=== PATIENT | male | born 1960 | race Caucasian/White ===

== ENCOUNTER 2025-08-30 12:53 | Outpatient (AMB) | payer MEDICARE, SELFPAY ==
--- NOTE | 2025-08-30 12:57 | MHC.PC.OV ---
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 Transferring care from Tian Grossman ([facility]). Medical records have been requested and have not received. Plumbing Manager: Present Accompanied by: Spouse Allergies allopurinol Allergy (Severe, Verified 08/30/25 13:11) Anaphylaxis naproxen Allergy (Severe, Verified 08/30/25 13:11) Anaphylaxis colchicine Allergy (Intermediate, Verified 08/30/25 13:11) Swelling gabapentin Allergy (Intermediate, Verified 08/30/25 13:11) Nausea hydromorphone (From Dilaudid) Allergy (Intermediate, Verified 08/30/25 13:11) Nausea methadone Allergy (Intermediate, Verified 08/30/25 13:11) Nausea morphine Allergy (Intermediate, Verified 08/30/25 13:11) Nausea NSAIDS (Non-Steroidal Anti-Inflamma Allergy (Intermediate, Verified 08/30/25 13:11) Swelling Medication List - Last Reconciled 08/30/25 by Keyur Kaye MD famotidine 40 mg PO DAILY prednisone 10 mg PO DAILY Tobacco use date assessed: 08/30/25 Fall risk assessment: No Falls in past year Last assessed Fall Risk: 08/30/25 Dental Screening Dental Screen Date: 08/30/25 Did you have a dental visit in the last 12 months?: No Did you have a dental problem in the last 6 months where you did not have access to dental care?: No Was dental information given to patient?: No HPI HPI Comments History of Present Illness Details The patient is a 65 year old M with PMH of back pain s/p multiple reported surgeries presenting to establish primary care and for management of chronic health conditions. The patient has a history of chronic back pain following seven back surgeries, which included the removal of two discs, fusion of both sacroiliac joints, and placement of extensive hardware including rods and screws in the back and neck. Previous treatments included approximately 40 radiofrequency ablations and nearly 100 back injections. For pain management, the patient was previously on high-dose opioids, including up to 375 mg of oxycodone daily and a 150 mcg fentanyl patch every three days. The patient tapered down the medication and recently requested to discontinue fentanyl which The patient has been without any opioid pain medication for almost four months and reports feeling awful, with increased pain, especially with weather changes, and withdrawal symptoms such as leg twitching. The patient has a history of gout since age 26. The patient is unable to take NSAIDs, colchicine, or allopurinol due to an anaphylactic reaction to naproxen in the past, which caused facial swelling and syncope. Flare-ups have been managed with as-needed prednisone 10 mg. Past medical history is also significant for weight-related type 2 diabetes, which resolved after losing weight from 360 pounds to approximately 200 pounds. The patient takes famotidine for acid reflux. The patient used to be a tobacco grader. [facility] Surgical History (Updated 08/30/25 @ 13:16 by NED Fournier) History of vasectomy History of neck surgery History of knee surgery History of back surgery History of right shoulder surgery Social History (Updated 08/30/25 @ 13:16 by NED Fournier) Housing: House Alcohol intake: former Patient Tobacco Use Status: Current everyday Tobacco user Tobacco use type: Cigarette Cigarette Packs Per Day: 0.5 Cigarettes Per Day: 4 e-Cigarette/Vaping Use: Never Used Second Hand Smoke Exposure: Yes service: Yes Current occupational status: disabled Cognitive needs: Yes (Cane) Hearing needs: No Vision needs: Yes (Glasses) Questionnaire PHQ-9 Over the last 2 weeks, how often have you been bothered by any of the following problems? 1. Little interest or pleasure in doing things: several days 2. Feeling down, depressed, or hopeless: several days 3. Trouble falling or staying asleep, or sleeping too much: several days 4. Feeling tired or having little energy: several days 5. Poor appetite or overeating: several days 6. Feeling bad about yourself - or that you are a failure or have let yourself or your family down: not at all 7. Trouble concentrating on things, such as reading the newspaper or watching television: not at all 8. Moving or speaking so slowly that other people could have noticed. Or the opposite - being so fidgety or restless that you have been moving around a lot more than usual: not at all 9. Thoughts that you would be better off or of hurting yourself in some way: not at all Total score: 5 Depression Screening Interpretation: Positive Depression Screening Done: Yes Source: Developed by Drs. Chai Hahn, Mayra Benito, Bello Small and colleagues, with an educational kirill from [employer] Thrive Questionnaire Date Thrive assessed: 08/30/25 I am a: Patient What is your living situation today?: I have a steady place to live Within the past 12 months, did the food you bought not last and you didn't have the money to get more?: Sometimes True Within the past 12 months, did you worry whether your food would run out before you got money to buy more?: Sometimes True Do you have trouble paying for medicines?: No Do you have trouble getting transportation to medical appointments?: No Do you have trouble paying your heating and electricity bill?: No Do you have trouble taking care of your child, family member or friend?: No Do you have trouble with day-to-day activities such as bathing, preparing meals, shopping, managing finances, etc.?: No Are you currently unemployed and looking for a job?: No Are you interested in more education?: No Please select the resources that you would like help with: None Currently or been in a relationship where the following occur: No concerns reported THRIVE Score: 2 AUDIT C Alcohol Use Questionnaire (AUDIT-C) 1. How often do you have a drink containing alcohol?: Monthly or less 2. How many drinks containing alcohol do you have on a typical day when you are drinking?: 1 or 2 3. How often do you have six or more drinks on one occasion?: Never Total Score: 1 CHILANGO-7 AMB Questionnaire CHILANGO-7 Date CHILANGO - 7 assessed: 08/30/25 Feeling nervous, anxious, or on edge: 1 = Several days Not being able to stop or control worryin = Several days Worrying too much about different things: 1 = Several days Trouble relaxin = Several days Being so restless that it is hard to sit still: 0 = Not at all Becoming easily annoyed or irritable: 1 = Several days Feeling afraid as if something awful might happen: 0 = Not at all Total CHILANGO-7 score (0-4 normal; 5-9 mild; 10-14 moderate; 15-21 severe): 5 Source: Developed by Drs. Chai Hahn, Mayra Benito, Bello Small and colleagues, with an educational kirill from [employer] Review of Systems Const Details: As per HPI. Physical exam (Primary Care) Vital Signs: Last Vital Signs Temp 97.1 F 08/30/25 12:59 Pulse 66 08/30/25 12:59 BP 130/82 08/30/25 12:59 Pulse Ox 99 08/30/25 12:59 Oxygen Delivery Method Room Air 08/30/25 12:59 BMI result Body Mass Index 29.8 Tobacco/Smoking Status: Tobacco use Status Tobacco use date assessed 08/30/25 08/30/25 13:18 Patient Tobacco Use Status Current everyday Tobacco 08/30/25 13:18 Tobacco use type Cigarette 08/30/25 13:18 e-Cigarette/Vaping Use Never Used 08/30/25 13:18 PHQ-9: PHQ-9 Score PHQ-9: Total score 5 08/30/25 13:18 Depression Screening Interpretation: Positive Thrive Assessment: Date of Thrive Assessment Date Thrive assessed 08/30/25 08/30/25 13:18 Currently or been in a relationship where the following occur: No concerns reported Const Other: Pertinent findings are in BOLD GENERAL APPEARANCE NAD, activity normal for age, well developed/ well nourished, no cyanosis, pallor, or diaphoresis. EYES lids/conjunctiva normal. EARS/NOSE/THROAT Mucous membranes moist, nares normal, lips/teeth normal uvula midline without oral pharyngeal erythema, exudate or swelling TMs normal bilaterally. No lymphangitis/lymphedema. HEAD/NECK normocephalic atraumatic, no facial trauma, neck is supple. RESPIRATORY respiratory effort normal, speaks in full sentences, no tripod position, no accessory muscle use. Lungs clear to auscultation without rhonchi, wheezes, rales CARDIAC Regular rate and rhythm, no edema. ABDOMINAL Soft, ND/NT. No evidence of fluid wave. No pulsatile masses on exam, rebound tenderness, Finnegan sign or pain over Mcburney's point. MUSCLES/EXTREMITIES No abnormal range of motion, no swelling. Back midline vertical scar from back surgery. SKIN Warm, pink and dry. No rashes, dermatoses, petechiae or lesions. NEUROLOGICAL Speech is clear and appropriate. Normal level of consciousness. Gait and coordination are normal. 5/5 strength in all extremities. PSYCH Normal mood and affect. Judgement/competence is appropriate Coding Level of Care Code New Pt Level 4 (75444) Diagnoses Healthcare maintenance Z00.00 Back pain M54.9 Gout M10.9 Time Spent (min) 45 Assessment & Plan Assessment & Plan (1) Healthcare maintenance: Code(s): Z00.00 - Encounter for general adult medical examination without abnormal findings Category: Medical Plan: In 4 months for physical exam. Ordered general labs today. (2) Back pain: Comment: s/p multiple back surgeries. Code(s): M54.9 - Dorsalgia, unspecified Category: Medical Plan: - The patient's chronic back pain is severe, impacting function and sleep, particularly after stopping all opioid medication for nearly four months. - The patient wishes to manage pain with a low-dose opioid and avoid fentanyl. - Prescribe oxycodone 5 mg to be taken every 8 hours as needed for pain. Pain contract signed in clinic today. - A pain contract will be implemented, which includes random urine drug screens and pill counts. - Will request medical records from the patient's previous providers, including surgical reports and imaging, to be sent to the office. (3) Gout: Code(s): M10.9 - Gout, unspecified Category: Medical Plan: - The patient has a long-standing history of gout and is unable to take standard treatments like NSAIDs, allopurinol, or colchicine. - The patient reports managing flare-ups with as-needed prednisone 10 mg. - Discussed dietary modifications, such as avoiding red meat and dark sodas, to help manage gout. Patient currently does not consume alcohol. Plan I had a detailed discussion with the patient regarding the management of chronic back pain. I acknowledged the patient's desire to avoid high-dose opioids while still requiring medication for severe pain. We agreed to initiate low-dose oxycodone 5 mg as needed. I explained the necessity of a pain contract, which includes random urine drug screens and pill counts, to ensure safety and proper use of the medication; the patient verbalized understanding and agreement. We also discussed the plan for health maintenance, including ordering comprehensive lab work and administering an influenza vaccine, to which the patient consented. I instructed the patient on how to request previous medical records and scheduled a follow-up visit in four months for a complete physical exam. Orders: Orders Comprehensive Met. Panel Today Z00.00 - Encounter for general adult medical examination without abnormal findings Hepatitis C Antibody Reflex Today Z00.00 - Encounter for general adult medical examination without abnormal findings Lipid Panel Today Z00.00 - Encounter for general adult medical examination without abnormal findings TSH reflex Free T4 Today Z00.00 - Encounter for general adult medical examination without abnormal findings Complete Blood Count no Diff Today Z00.00 - Encounter for general adult medical examination without abnormal findings Hemoglobin A1c Today Z00.00 - Encounter for general adult medical examination without abnormal findings HIV Ab/Ag Today Z00.00 - Encounter for general adult medical examination without abnormal findings Prostate Specific Antigen Today Z00.00 - Encounter for general adult medical examination without abnormal findings Referrals Addiction Medicine Referral M54.9 - Dorsalgia, unspecified Rheumatology Referral M10.9 - Gout, unspecified Medications: New oxycodone Partial Fill upon patient request. 5 mg PO Q8H PRN 30 tabs 0RF pain famotidine 40 mg PO DAILY 60 tabs 3RF
[2025-08-30 12:59] VITALS: BP 130/82; PULSE 66; TEMP 36.2; O2SAT 99; BMI 29.8
--- OUTSIDE RECORDS SUMMARY | 2025-08-30 16:30 | XMS_ITS | Encounter Summary ---
Author Organization [facility] Address [address] [place] [address] Care Team Providers Care Still Worker Helper Name Role Phone Tian Grossman MD Primary Care Provider [phone] Scout Aponte MD Unavailable Trinidad Roa MD Unavailable [phone] Encounter Details Date Type Department Care Team (Late st Contact Info) Description 05/25/2022 Scanned Document [facility] Neurosurgery [address] [place] [phone] Neurosurgery, Scan Social History Tobacco Use Types Packs/Day Years Used Date Smoking Tobacco: Former Cigarettes 1 15 0 10/2006 - 10/2021 Smokeless Tobacco: Never Alcohol Use Standard Drinks/Week Comments Not Currently 0 (1 standard drink = 0.6 oz pur e alcohol) AUDIT-C Answer Date Recorded Q1: How often do you have a drink containing alcohol? Never 04/20/2022 Q2: How many drinks containi ng alcohol do you have on a typical day when you are drinking? Patient does not drink Q3: How often do you have si x or more drinks on one occasion? Never 04/20/2022 Sex and Gender Information Value Date Recorded Sex Assigned at Not on file Legal Sex Male 3:08 PM EST Gender Identity Not on file Sexual Orientation Not on file COVID-19 Exposure Response Date Recorded In the last 10 days, have yo u been in contact with someone who was confirmed or suspected to have Coronavirus/COVID-19? No / Unsure 05/09/2022 9:40 AM EDT documented as of this encounter Plan of Treatment Not on file documented as of this encounter Visit Diagnoses Not on filedocumented in this encounter Care Teams Still Worker Helper Relationship Specialty Start Date End Date Tian Grossman MD [address] [place] [address] [place] [address] PCP - General Internal Medicine 10/23/21 Scout Aponte MD [address] [place] [address] [place] [address] Referring Provider 10/23/21 Trinidad Roa MD [address] [place] [address] Surgery, Neurosurgery 02/19/22 documented as of this encounter
--- OUTSIDE RECORDS SUMMARY | 2025-08-30 16:30 | XMS_ITS | Encounter Summary ---
Author Organization [facility] Address [address] [place] [address] Care Team Providers Care Claim Specialist Name Role Phone Tian Grossman MD Primary Care Provider [phone] Scout Aponte MD Unavailable Trinidad Roa MD Unavailable [phone] Encounter Details Date Type Department Care Team (Late st Contact Info) Description 05/28/2022 Scanned Document [facility] NEUROSURGERY SCAN Neurosurgery, Scan Social History Tobacco Use Types [...] on filedocumented in this encounter Care Teams Claim Specialist Relationship Specialty Start Date End Date Tian Grossman MD [address] [place] [address] [place] [address] PCP - General Internal Medicine 10/23/21 Scout Aponte MD [address] [place] [address] [place] [address] Referring Provider 10/23/21 Trinidad Roa MD [address] [place] [address] Surgery, Neurosurgery 02/19/22 documented as of this encounter
--- OUTSIDE RECORDS SUMMARY | 2025-08-30 16:30 | XMS_ITS | Encounter Summary ---
Author Organization [facility] Address [address] [place] [address] Care Team Providers Care Rate Supervisor Name Role Phone Tian Grossman MD Primary Care Provider [phone] Scout Aponte MD Unavailable Trinidad Roa MD Unavailable [phone] Encounter Details Date Type Department Care Team (Late st Contact Info) Description 05/30/2022 Scanned Document [facility] Neurosurgery [address] [place] [phone] Neurosurgery, Scan Social History Tobacco Use Types [...] on filedocumented in this encounter Care Teams Rate Supervisor Relationship Specialty Start Date End Date Tian Grossman MD [address] [place] [address] [place] [address] PCP - General Internal Medicine 10/23/21 Scout Aponte MD [address] [place] [address] [place] [address] Referring Provider 10/23/21 Trinidad Roa MD [address] [place] [address] Surgery, Neurosurgery 02/19/22 documented as of this encounter
--- OUTSIDE RECORDS SUMMARY | 2025-08-30 16:30 | XMS_ITS | Encounter Summary ---
Author Organization [facility] Address [address] [place] [address] Care Team Providers Care Latrine Cleaner Name Role Phone Tian Grossman MD Primary Care Provider [phone] Scout Aponte MD Unavailable Trinidad Roa MD Unavailable Encounter Details Date Type Department Care Team (Late st Contact Info) Description 07/25/2022 Scanned Document [facility] NEUROSURGERY SCAN Neurosurgery, Scan Social History [...] suspected to have Coronavirus/COVID-19? No / Unsure 07/17/2022 10:41 AM EDT documented as of this encounter Plan of Treatment Not on file documented as of this encounter Visit Diagnoses Not on filedocumented in this encounter Care Teams Latrine Cleaner Relationship Specialty Start Date End Date Tian Grossman MD [address] [place] [address] [place] [address] PCP - General Internal Medicine 10/23/21 Scout Aponte MD [address] [place] [address] [place] [address] Referring Provider 10/23/21 Trinidad Roa MD [address] [place] [address] Surgery, Neurosurgery 02/19/22 documented as of this encounter
--- OUTSIDE RECORDS SUMMARY | 2025-08-30 16:30 | XMS_ITS | Encounter Summary ---
Author Organization [facility] Address [address] [place] [address] Care Team Providers Care Loadmaster Name Role Phone Tian Grossman MD Primary Care Provider [phone] Scout Aponte MD Unavailable Trinidad Roa MD Unavailable [phone] Encounter Details Date Type Department Care Team (Late st Contact Info) Description 06/22/2022 Scanned Document [facility] Neurosurgery [address] [id number] Maria Alejandra Linares PA Valid Address Needed Social History Tobacco Use Types Packs/Day Years [...] suspected to have Coronavirus/COVID-19? No / Unsure 06/22/2022 3:31 PM EDT documented as of this encounter Plan of Treatment Not on file documented as of this encounter Visit Diagnoses Not on filedocumented in this encounter Care Teams Loadmaster Relationship Specialty Start Date End Date Tian Grossman MD [facility] [place] [address] PCP - General Internal Medicine 10/23/21 Scout Aponte MD [address] [place] [address] [place] [address] Referring Provider 10/23/21 Trinidad Roa MD [address] [place] [address] Surgery, Neurosurgery 02/19/22 documented as of this encounter
--- OUTSIDE RECORDS SUMMARY | 2025-08-30 16:30 | XMS_ITS | Encounter Summary ---
Author Organization [facility] Address [address] [place] [address] Care Team Providers Care Buttonholer Name Role Phone Tian Grossman MD Primary Care Provider [phone] Scout Aponte MD Unavailable Trinidad Roa MD Unavailable [phone] Encounter Details Date Type Department Care Team (Late st Contact Info) Description 05/28/2022 Scanned Document [facility] NEUROSURGERY SCAN Neurosurgery, Scan Social History [...] on filedocumented in this encounter Care Teams Buttonholer Relationship Specialty Start Date End Date Tian Grossman MD [address] [place] [address] [place] [address] PCP - General Internal Medicine 10/23/21 Scout Aponte MD [address] [place] [address] [place] [address] Referring Provider 10/23/21 Trinidad Roa MD [address] [place] [address] Surgery, Neurosurgery 02/19/22 documented as of this encounter
--- OUTSIDE RECORDS SUMMARY | 2025-08-30 16:30 | XMS_ITS | Clinical Summary ---
Author Organization [facility] Address [address] [place] [address] Care Team Providers Care Stucco Laborer Name Role Phone Unavailable Primary Care Provider Unavailabl e Social History Tobacco Use Types Packs/Day Years Used Date Smoking Tobacco: Never Assessed Sex and Gender Information Value Date Recorded Sex Assigned at Not on file Legal Sex Male 12:05 PM EST Gender Identity Not on file Sexual Orientation Not on file Plan of Treatment Health Maintenance Due Date Last Done Comments DTaP,Tdap,and Td Vaccines (1 - Tdap) 1978 Pneumococcal Vaccine: 50+ Ye ars (1 of 1 - PCV) 2009 Zoster Vaccines (1 of 2) 2009 Depression Screening 09/30/2024 COVID-19 Vaccine (1 - 2024-2 6 season) 2025 Influenza Vaccine (#1) 2025 RSV Immunization Adult Patie nts (1 - 1-dose 75+ series) 2034 HIB Vaccines Aged Out No longer eligi ble based on patient's age to complete this topic HPV Vaccines Aged Out No longer eligi ble based on patient's age to complete this topic Hepatitis A Vaccines Aged Out No long er eligible based on patient's age to complete this topic Hepatitis B Vaccines Aged Out No long er eligible based on patient's age to complete this topic IPV Vaccines Aged Out No longer eligi ble based on patient's age to complete this topic MMR Vaccines Aged Out No longer eligi ble based on patient's age to complete this topic Meningococcal ACWY Vaccine Aged Out N o longer eligible based on patient's age to complete this topic Meningococcal B Vaccine Aged Out No l onger eligible based on patient's age to complete this topic RSV Immunization Patients Un eren 20 months Aged Out No longer eligible b ased on patient's age to complete this topic Varicella Vaccines Aged Out No longer eligible based on patient's age to complete this topic
--- OUTSIDE RECORDS SUMMARY | 2025-08-30 16:30 | XMS_ITS | Encounter Summary ---
Author Organization [facility] Address [address] [place] [address] Care Team Providers Care Traffic Control Operator Name Role Phone Tian Grossman MD Primary Care Provider [phone] Scout Aopnte MD Unavailable Trinidad Roa MD Unavailable [phone] Encounter Details Date Type Department Care Team (Late st Contact Info) Description 08/14/2022 Scanned Document [facility] Neurosurgery [address] [place] [phone] Neurosurgery, Scan Social History Tobacco Use Types [...] on filedocumented in this encounter Care Teams Traffic Control Operator Relationship Specialty Start Date End Date Tian Grossman MD [address] [place] [address] [place] [address] PCP - General Internal Medicine 10/23/21 Scout Aponte MD [address] [place] [address] [place] [address] Referring Provider 10/23/21 Trinidad Roa MD [address] [place] [address] Surgery, Neurosurgery 02/19/22 documented as of this encounter
--- OUTSIDE RECORDS SUMMARY | 2025-08-30 16:30 | XMS_ITS | Encounter Summary ---
Author Organization [facility] Address [address] [place] [address] Care Team Providers Care Independent Consultant Name Role Phone Tian Grossman MD Primary Care Provider [phone] Scout Aponte MD Unavailable Trinidad Roa MD Unavailable [phone] Encounter Details Date Type Department Care Team (Late st Contact Info) Description 06/20/2022 Scanned Document [facility] NEUROSURGERY SCAN Neurosurgery, Scan Social History [...] on filedocumented in this encounter Care Teams Independent Consultant Relationship Specialty Start Date End Date Tian Grossman MD [address] [place] [address] [place] [address] PCP - General Internal Medicine 10/23/21 Scout Aponte MD [address] [place] [address] [place] [address] Referring Provider 10/23/21 Trinidad Roa MD [address] [place] [address] Surgery, Neurosurgery 02/19/22 documented as of this encounter
--- OUTSIDE RECORDS SUMMARY | 2025-08-30 16:30 | XMS_ITS | Encounter Summary ---
Author Organization [facility] Address [address] [place] [address] Care Team Providers Care Nursing Executive Name Role Phone Tian Grossman MD Primary Care Provider [phone] Scout Aponte MD Unavailable Trinidad Roa MD Unavailable [phone] Encounter Details Date Type Department Care Team (Late st Contact Info) Description 10/16/[address] [facility] Neurosurgery [address] [place] [phone] Neurosurgery, Scan Social History Tobacco Use Types [...] on file Sexual Orientation Not on file documented as of this encounter Plan of Treatment Not on file documented as of this encounter Visit Diagnoses Not on filedocumented in this encounter Care Teams Nursing Executive Relationship Specialty Start Date End Date [facility] [place] [address] PCP - General Internal Medicine 10/23/21 Scout Aponte MD [address] [place] [address] [place] [address] Referring Provider 10/23/21 Trinidad Roa MD [address] [place] [address] Surgery, Neurosurgery 02/19/22 documented as of this encounter
--- OUTSIDE RECORDS SUMMARY | 2025-08-30 16:30 | XMS_ITS ---
Author Name [facility] Organization Unknown History of Medication Use Medication Directions Dispensed Refills Start Date End Date Stat oxyCODONE (ROXICODONE) 5 MG immediate release tablet Take 2 tablets (10 mg total) by mouth 4 times daily (every 6 hours) as needed for moderate pain or severe pain. Max Daily Amount: 40 mg 11/09/2022 04/12/2023 active methocarbamol (ROBAXIN) 750 MG tablet TAKE 1 TABLET BY MOUTH FOUR TIMES A DAY 08/15/2022 01/30/2023 active diazepam (VALIUM) 5 MG tablet Take 1 tablet (5 mg total) by mouth 2 (two) times a day. Take one 4 hours before the MRI and if still anxious take one 1 hour before MRI. 06/22/2022 08/30/2022 active oxyCODONE-acetaminop hen (PERCOCET) 10-325 mg per tablet Take 1 tablet by mouth every 4 (four) hours as needed for severe pain. Max Daily Amount: 6 tablets 06/22/2022 07/20/2022 aborted cephalexin (KEFLEX) 500 MG capsule Take 2 capsules (1,000 mg total) by mouth 2 (two) times a day. 06/22/2022 07/07/2022 aborted sulfamethoxazole-tri methoprim (BACTRIM DS,SEPTRA DS) 800-160 MG per tablet Take 1 tablet by mouth 2 (two) times a day. 06/22/2022 07/07/2022 aborted oxyCODONE (ROXICODONE) 10 mg immediate release tablet Take 1 tablet (10 mg total) by mouth every 4 (four) hours as needed for severe pain. Max Daily Amount: 60 mg 06/18/2022 11/12/2022 active methocarbamol (ROBAXIN) 750 MG tablet Take 1 tablet (750 mg total) by mouth 4 (four) times a day. 06/18/2022 08/15/2022 active ascorbic acid (VITAMIN C) 1000 MG tablet Take 1 tablet (1,000 mg total) by mouth daily. Do not start before May 15, 2022. 05/15/2022 active gabapentin (NEURONTIN) 100 MG capsule Take 1 capsule (100 mg total) by mouth 2 (two) times a day. 05/14/2022 active gabapentin (NEURONTIN) 300 MG capsule Take 1 capsule (300 mg total) by mouth nightly. 05/14/2022 active predniSONE (DELTASONE) 10 MG tablet Take 10 mg by mouth daily as needed. gout 03/14/2022 active acetaminophen (TYLENOL) 325 MG tablet Take 3 tablets (975 mg total) by mouth every 8 (eight) hours around the clock. 02/24/2022 active senna-docusate (SENNA-S) 8.6-50 MG Take 2 tablets by mouth nightly. 02/24/2022 active fentaNYL (DURAGESIC) 100 mcg/hr patch APPLY 1 PATCH TOPICALLY TO THE SKIN EVERY 72 HOURS 01/06/2022 active nystatin 540322 UNIT/GM powder Apply topically 2 (two) times a day. 12/08/2021 active Allergies Allergen Reaction Severity Comment Documented Date Source Statu s BACLOFEN DELERIUM/CONFUSION /PSYCHOSIS Salivation, dizziness and imbalance, with altered mental status 06/18/2022 [facility] active TOPIRAMATE SWELLING 01/23/2022 [facility] active ALLOPURINOL ANAPHYLAXIS [facility] COLCHICINE ANAPHYLAXIS [facility] METHADONE SHORTNESS OF BREATH [facility] NAPROXEN ANAPHYLAXIS [facility] NSAIDS [facility] Problems Problem Status Onset Date Problem Type Date of Resoluti on Source Diabetic polyneuropathy associated with type 2 diabetes mellitus active 2023-04-12 [facility]Act [facility] Lumbar adjacent segment disease with spondylolisthesis active 2022-02-16 [facility]Act [facility] Postlaminectomy syndrome active 2022-09-23 [facility]Act [facility] Chronic, continuous use of opioids active 2023-01-14 ProblemAct [facility] Gout active ProblemAct [facility] Quadriparesis active 2022-02-23 ProblemAct [facility] T S/P lumbar spinal fusion active 2022-08-19 ProblemAct [facility] Cervical myelopathy active 2022-02-16 ProblemAct [facility] Postoperative visit active 2022-08-19 ProblemAct [facility] Chronic bilateral low back pain with left-sided sciatica active 2022-08-19 ProblemAct [facility] Type 2 diabetes mellitus active Problem[facility] Spinal stenosis, lumbar region, with neurogenic claudication active 2022-02-16 ProblemAct [facility] Lumbar radiculopathy active 2022-05-09 ProblemAct [facility] Lumbar foraminal stenosis active 2022-02-16 ProblemAct [facility] Encounters Encounter Type Encounter Reason Primary Diagnosis Location Date Ambulatory Type 2 diabetes mellitus with diabetic polyneuropathy [facility] 04/12/2023 Ambulatory Postlaminectomy syndrome, not elsewhere classified [facility] 01/04/2023 Ambulatory Other interverte bral disc degeneration, lumbosacral region [facility] 12/12/2022 Ambulatory Pain in right leg [facility] 11/23/2022 Ambulatory Arthrodesis status [facility] 09/07/2022 Ambulatory Arthrodesis status [facility] 08/03/2022 Ambulatory Arthrodesis status [facility] 07/17/2022 Ambulatory Arthrodesis status [facility] 07/06/2022 Ambulatory Disruption of wo und, unspecified, initial encounter [facility] 06/22/2022 Ambulatory Irritant contact dermatitis due friction or contact with other specified body fluids [facility] 06/18/2022 Ambulatory Arthrodesis status [facility] 06/08/2022 Ambulatory Arthrodesis status [facility] 05/28/2022 Ambulatory Arthrodesis status [facility] 05/18/2022 Inpatient Arthrodesis status [facility] 05/09/2022 Ambulatory Encounter for preprocedural laboratory examination [facility] 05/07/2022 Ambulatory Encounter for ot her preprocedural examination [facility] 04/23/2022 Ambulatory Other interverte bral disc degeneration, lumbar region [facility] 04/16/2022 Ambulatory Arthrodesis status [facility] 03/09/2022 Ambulatory Disease of spina l cord, unspecified [facility] 02/23/2022 Ambulatory Encounter for preprocedural laboratory examination [facility] 02/21/2022 Ambulatory Encounter for ot her preprocedural examination [facility] 02/20/2022 Ambulatory Back Pain [place] [facility] [place] 01/23/2022 Ambulatory [facility] 11/21/2021 Care Team Organization Name Specialty Phone Email Start Date End Da te [place] [facility] Beth Grossman Primary Care 08/03/[address] [place] [facility] BETH GROSSMAN Primary Care 01/23/2022 07/17/2022
--- OUTSIDE RECORDS SUMMARY | 2025-08-30 16:30 | XMS_ITS | Encounter Summary ---
Author Organization [facility] Address [address] [place] [address] Care Team Providers Care Medication Administration Professional Name Role Phone Tian Grossman MD Primary Care Provider [phone] Scout Aponte MD Unavailable Trinidad Roa MD Unavailable [phone] Encounter Details Date Type Department Care Team (Late st Contact Info) Description 06/20/2022 Scanned Document [facility] Neurosurgery [address] [place] [phone] Neurosurgery, Scan Social History Tobacco Use Types [...] on filedocumented in this encounter Care Teams Medication Administration Professional Relationship Specialty Start Date End Date Tian Grossman MD [address] [place] [address] [place] [address] PCP - General Internal Medicine 10/23/21 Scout Aponte MD [address] [place] [address] [place] [address] Referring Provider 10/23/21 Trinidad Roa MD [address] [place] [address] Surgery, Neurosurgery 02/19/22 documented as of this encounter
--- OUTSIDE RECORDS SUMMARY | 2025-08-30 16:30 | XMS_ITS | Encounter Summary ---
Author Organization [facility] Address [address] [place] [address] Care Team Providers Care Delphi Programmer Name Role Phone Tian Grossman MD Primary Care Provider [phone] Scout Aponte MD Unavailable Trinidad Roa MD Unavailable [phone] Encounter Details Date Type Department Care Team (Late st Contact Info) Description 12/26/2022 Scanned Document [facility] Neurosurgery [address] [place] [phone] Neurosurgery, Scan Social History Tobacco Use Types [...] on filedocumented in this encounter Care Teams Delphi Programmer Relationship Specialty Start Date End Date Tian Grossman MD [address] [place] [address] PCP - General Internal Medicine 10/23/21 Scout Aponte MD [address] [place] [address] [place] [address] Referring Provider 10/23/21 Trinidad Roa MD [address] [place] [address] Surgery, Neurosurgery 02/19/22 documented as of this encounter
--- OUTSIDE RECORDS SUMMARY | 2025-08-30 16:30 | XMS_ITS | Encounter Summary ---
Author Organization [facility] Address [address] [place] [address] Care Team Providers Care Alarm Installation Technician Name Role Phone Tian Grossman MD Primary Care Provider [phone] Scout Aponte MD Unavailable Trinidad Roa MD Unavailable [phone] Encounter Details Date Type Department Care Team (Late st Contact Info) Description 08/16/2022 Scanned Document [facility] NEUROSURGERY SCAN Neurosurgery, Scan Social History Tobacco [...] on filedocumented in this encounter Care Teams Alarm Installation Technician Relationship Specialty Start Date End Date Tian Grossman MD [address] [place] [address] [place] [address] PCP - General Internal Medicine 10/23/21 Scout Aponte MD [address] [place] [address] [place] [address] Referring Provider 10/23/21 Trinidad Roa MD [address] [place] [address] Surgery, Neurosurgery 02/19/22 documented as of this encounter
--- OUTSIDE RECORDS SUMMARY | 2025-08-30 16:30 | XMS_ITS | Encounter Summary ---
Author Organization [facility] Address [address] [place] [address] Care Team Providers Care Manufacturing Intern Name Role Phone Tian Grossman MD Primary Care Provider [phone] Scout Aponte MD Unavailable Trinidad Roa MD Unavailable [phone] Encounter Details Date Type Department Care Team (Late st Contact Info) Description 07/30/2022 Scanned Document [facility] Neurosurgery [address] [place] [phone] Neurosurgery, Scan Social History Tobacco Use Types [...] on filedocumented in this encounter Care Teams Manufacturing Intern Relationship Specialty Start Date End Date Tian Grossman MD [address] [place] [address] [place] [address] PCP - General Internal Medicine 10/23/21 Scout Aponte MD [address] [place] [address] [place] [address] Referring Provider 10/23/21 Trinidad Roa MD [address] [place] [address] Surgery, Neurosurgery 02/19/22 documented as of this encounter
--- OUTSIDE RECORDS SUMMARY | 2025-08-30 16:30 | XMS_ITS | Encounter Summary ---
Author Organization [facility] Address [address] [place] [address] Care Team Providers Care Consumer Insights Specialist Name Role Phone Tian Grossman MD Primary Care Provider [phone] Scout Aponte MD Unavailable Trinidad Roa MD Unavailable Encounter Details Date Type Department Care Team (Late st Contact Info) Description 05/04/2022 Prep for Surgery [facility] [place] [address] [place] [address] [address] [place] [phone] Ellyn Joy APRN [address] [place] [address] [address], [place] [phone] Social History Tobacco Use Types Packs/Day Years [...] was confirmed or suspected to have Coronavirus/COVID-19? Unable to assess 05/07/2022 9:14 AM EDT documented as of this encounter Plan of Treatment Not on file documented as of this encounter Visit Diagnoses Not on filedocumented in this encounter Care Teams Consumer Insights Specialist Relationship Specialty Start Date End Date Tian Grossman MD [address] [place] [address] [place] [address] PCP - General Internal Medicine 10/23/21 Scout Aponte MD [address] [place] [address] [place] [address] Referring Provider 10/23/21 Trinidad Roa MD [address] [place] [address] Surgery, Neurosurgery 02/19/22 documented as of this encounter
--- OUTSIDE RECORDS SUMMARY | 2025-08-30 16:30 | XMS_ITS | Encounter Summary ---
Author Organization [facility] Address [address] [place] [address] Care Team Providers Care Juice Mixer Name Role Phone Tian Grossman MD Primary Care Provider [phone] Scout Aponte MD Unavailable Trinidad Roa MD Unavailable [phone] Encounter Details Date Type Department Care Team (Late st Contact Info) Description 06/26/2022 Scanned Document [facility] NEUROSURGERY SCAN Neurosurgery, Scan Social History Tobacco [...] on filedocumented in this encounter Care Teams Juice Mixer Relationship Specialty Start Date End Date Tian Grossman MD [address] [place] [address] [place] [address] PCP - General Internal Medicine 10/23/21 Scout Aponte MD [address] [place] [address] [place] [address] Referring Provider 10/23/21 Trinidad Roa MD [address] [place] [address] Surgery, Neurosurgery 02/19/22 documented as of this encounter
--- OUTSIDE RECORDS SUMMARY | 2025-08-30 16:30 | XMS_ITS | Clinical Summary ---
Author Organization Formerly [facility] Address [address] [place], [place] [id number] Care Team Providers Care Boiler House Inspector Name Role Phone Tian Grossman MD Primary Care Provider [phone] Scout Aponte MD Unavailable Triniadd Roa MD Unavailable Allergies Active Allergy Reactions Criticality Noted Date Comments Allopurinol Anaphylaxis High 01/23/2022 Baclofen Delirium/Confusion/P sycho sis Medium 06/18/2022 Salivation, dizziness and imbalance, with altered mental status Colchicine Anaphylaxis High 01/23/2022 Methadone Shortness Of Breath High 01/23/2022 Naproxen Anaphylaxis High 01/23/2022 Nsaids Swelling Medium 01/23/2022 Topiramate Swelling Medium 01/23/2022 Medications fentaNYL (DURAGESIC) 100 mcg/hr patch APPLY 1 PATCH TOPICALLY TO THE SKIN EVERY 72 HOURS 2 Active nystatin 303099 UNIT/GM powder Apply topically 2 (two) times a day. 2 Active acetaminophen (TYLENOL) 325 MG tabletIndicatio ns:Cervical myelopathy (HCC) Take 3 tablets (975 mg total) by mouth every 8 (eight) hours around the clock. 270 tablet 2 Active Additional Information Patient taking differently: 650 mgOral Every 8 hours scheduled, Reason: Other, Reported on 07/17/2022 senna-docusate (SENNA-S) 8.6-50 MGIndications:C ervical myelopathy (HCC) Take 2 tablets by mouth nightly. 60 tablet 2 Active Additional Information Patient taking differently:2 tablet OralNightly PRN, Reason: Other, Reported on 04/20/2022 predniSONE (DELTASONE) 10 MG tablet Take 1 tablet (10 mg total) by mouth daily as needed. gout 2 Active ascorbic acid (VITAMIN C) 1000 MG tabletIndicatio ns:S/P lumbar spinal fusion Take 1 tablet (1,000 mg total) by mouth daily. Do not start before May 15, 2022. 30 tablet 2 Active gabapentin (NEURONTIN) 300 MG capsuleIndicati ons:S/P lumbar spinal fusion Take 1 capsule (300 mg total) by mouth nightly. 30 capsule 2 Active diazepam (VALIUM) 5 MG tabletIndicatio ns:S/P lumbar spinal fusion Take 1 tablet (5 mg total) by mouth 2 (two) times a day. Take one 4 hours before the MRI and if still anxious take one 1 hour before MRI. 2 tablet 2 Active methocarbamol (ROBAXIN) 750 MG tabletIndicatio ns:S/P lumbar spinal fusion TAKE 1 TABLET BY MOUTH FOUR TIMES A DAY 120 tablet 3 Active Active Problems Problem Noted Date Diagnosed Date Diabetic polyneuropathy asso ciated with type 2 diabetes mellitus 04/12/2023 Chronic, continuous use of opioids 01/14/2023 Postlaminectomy syndrome 09/23/2022 S/P lumbar spinal fusion 08/19/2022 Postoperative visit 08/19/2022 Chronic bilateral low back pain with left-sided sciatica 08/19/2022 Lumbar radiculopathy 05/09/2022 Quadriparesis 02/23/2022 Lumbar adjacent segment disease with spondylolis thesis 02/16/2022 Spinal stenosis, lumbar melissa on, with neurogenic claudication 02/16/2022 Lumbar foraminal stenosis 02/16/2022 Cervical myelopathy 02/16/2022 Type 2 diabetes mellitus Overview (04/23/2022): resolved after 100 lbs weight loss. Gout Family History Medical History Relation Name Comments HIV Brother Asthma Daughter Lung cancer Father Hodgkin's lymphoma Mother Lung cancer Mother Hypertension Sister Sleep apnea Sister No Known Problems Son 33 yo Relation Name Status Comments Brother Daughter (Age 25) Father Mother Sister Alive Son 33 yo Alive Social History Tobacco Use Types Packs/Day Years Used Date Smoking Tobacco: Former Cigarettes 1 15 0 10/2006 - 10/2021 Smokeless Tobacco: Never Tobacco Cessation:Counseling Given: Not Answered Alcohol Use Standard Drinks/Week Comments Not Currently [...] on file Sexual Orientation Not on file Last Filed Vital Signs Vital Sign Reading Time Taken Comments Blood Pressure 126/78 04/12/2023 12:50 PM EDT Pulse 73 04/12/2023 12:50 PM EDT Temperature 36.1 C (97 F) 01/04/2023 1:19 PM EDT Respiratory Rate 18 01/04/2023 1:19 PM EDT Oxygen Saturation 98% 01/04/2023 1:19 PM EDT Inhaled Oxygen Concentration - - Weight 98.3 kg (216 lb 12.8 oz) 023 12:50 PM EDT Height 170.2 cm (5' 7 ) 04/12/2023 12:5 0 PM EDT Body Mass Index 33.96 04/12/2023 12:50 PM EDT Plan of Treatment Health Maintenance Due Date Last Done Comments Advance Care Planning 1959 Hepatitis C Virus Screening 1959 Foot Exam 1969 Lipid Panel 1969 Ophthalmology Exam 1969 Microalbumin/Creatinine Ratio Urine 1977 DTaP/Tdap/Td Vaccines (1 - Tdap) 1978 Pneumococcal Vaccines 50+ (1 of 2 - PCV) 1978 Colonoscopy 02/27/2004 RSV Vaccine 50 years and older and Patients (1 - Risk 50-74 years 1-dose series) 2009 Zoster (Shingles) Vaccine (1 of 2) 2009 Hemoglobin A1C 10/24/2022 04/23/2022, 02/20/2022 Creatinine with GFR 05/10/2023 05/10/2022, 04/23/2022, 02/24/2022, Additional history exists Influenza Vaccine 04/30/2025 COVID-19 Vaccine ( season) 2025 Chronic Controlled Substance User PDMP Review Discontinued 01/04/2023 Hepatitis B Vaccines Aged Out No long er eligible based on patient's age to complete this topic Medical Devices Implanted Type Area Dance [employer] Hostess Device Identifier Shelf Expiration Date Model / Serial / Lot [id number] Spacer Spinal 14x6mm Vrtstck Crstn Psr 11mm Peek-Optm - [id number] Implanted:Qt y: 1 on 02/23/2022 by Trinidad Roa MD at [facility] Cage N/A: Spine Cervical [employer] 11/08/2029 [id number] / / [id number] Plate Spine Cervical Anterior 19mm 1 Lvl Bone Zevo Nonst - [id number] Implanted:Qt y: 1 on 02/23/2022 by Trinidad Roa MD at [facility] Plate N/A: Spine Cervical [employer] [id number] / / [id number] Screw Bone Spine Cervical Anterior Zevo 17mm Ti 4mm Self - [id number] Implanted:Qt y: 4 on 02/23/2022 by Trinidad Roa MD at [facility] Spine N/A: Spine Cervical [employer] [id number] / / [id number] Screw Set Ti Spine Brk Off Cd Hzn Nonst 5.5 Mm Mohan - [id number] Implanted:Qt y: 4 on 05/09/2022 by Trinidad Roa MD at [facility] Spine N/A: Spine Lumbar [employer] [id number] / / [id number] Filler Bone Void .5cc Dbx Putty - [id number] Implanted:Qt y: 1 on 02/23/2022 by Trinidad Roa MD at [facility] Void Filler [employer]LET[employer]OU 07/11/2023 [id number] / [id number] / [id number] Filler Bone Void 10cc Dbx Algrf Frzdr Putty - [id number] Implanted:Qt y: 1 on 05/09/2022 by Trinidad Roa MD at [facility] Void Filler N/A: Spine Lumbar [employer] 01/31/2024 [id number] / [id number] / [id number] Filler Bone Void 10cc Dbx Algrf Frzdr Putty - [id number] Implanted:Qt y: 1 on 05/09/2022 by Trinidad Roa MD at [facility] Void Filler N/A: Spine Lumbar [employer] 01/24/2024 [id number] / [id number] / [id number] Filler Bone Void 10cc Dbx Algrf Frzdr Putty - [id number] Implanted:Qt y: 1 on 05/09/2022 by Trinidad Roa MD at [facility] Void Filler N/A: Spine Lumbar [employer] 01/24/2024 [id number] / [id number] / Solera 7.5x55 Mm Screw Implanted:Qt y: 4 on 05/09/2022 by Trinidad Roa MD at [facility] N/A: Spine Lumbar Medtronic [id number] / / Tall Shell 29mm (Flarehawk) Implanted:Qt y: 1 on 05/09/2022 by Trinidad Roa MD at [facility] N/A: Spine Lumbar Other [id number] / / Titi 14mm, 6 Degrees(Flar ehawk) Implanted:Qt y: 1 on 05/09/2022 by Trinidad Roa MD at [facility] N/A: Spine Lumbar Other [id number] / / 35mm Mohan Implanted:Qt y: 2 on 05/09/2022 by Trinidad Roa MD at [facility] N/A: Spine Lumbar Medtronic [id number] / / Explanted Type Area Dance Hall Hostess Device Identifier Shelf Expiration Date Model / Serial / Lot [id number] Screw Bone Spine Cervical Anterior Zevo 15mm Ti 3.5mm Wi - [id number] Explanted:Qty : 4 on 02/23/2022 by Trinidad Roa MD at [facility] Spine N/A: Spine Cervical [employer] [id number] / / Description:Wrong size Procedures Procedure Name Priority Date/Time Associated Diagnosis Comments BASIC METABOLIC PANEL Routine 05/10/2022 5:27 AM EDT HEMOGLOBIN A1C WITH ESTIMATED AVERAGE GLUCOSE Routine 04/23/2022 11:17 AM EDT Preoperative examination Spinal stenosis of lumbar region with neurogenic claudication Type 2 diabetes mellitus without complication, without long-term current use of insulin (HCC) Gout, unspecified cause, unspecified chronicity, unspecified site Quadriparesis (HCC) from Last 3 Months or Most Recently Relevant to Health Maintenance Results * (ABNORMAL) Basic Metabolic Panel (05/10/2022 5:27 AM EDT) Glucose 154(H) 65 - 99 mg/dL 05/10/2022 7:06 AM [facility] Comment:Fasting: <100 mg/dL, Non-Fasting: <200 mg/dL (ADA 2005) Blood Urea Nitrogen (BUN) 10 8 - 21 mg/dL 05/10/2022 7:06 AM [facility] Creatinine 0.8 0.5 - 1.3 mg/dL 05/10/2022 7:06 AM [facility] eGFR >60 >59 05/10/2022 7:06 AM [facility] Comment:MDRD in mL/min/1.73 sq meters. Sodium 139 136 - 145 mmol/L 05/10/2022 7:06 AM [facility] Potassium 4.8 3.4 - 5.3 mmol/L 05/10/2022 7:06 AM [facility] Chloride 103 98 - 107 mmol/L 05/10/2022 7:06 AM [facility] CO2 25 22 - 33 mmol/L 05/10/2022 7:06 AM [facility] Anion Gap 11 7 - 17 05/10/2022 7:06 AM [facility] Calcium 8.8 8.7 - 10.5 mg/dL 05/10/2022 7:06 AM [facility] BUN/Creatinine Ratio 13 10.0 - 25.0 Ratio 05/10/2022 7:06 AM EDT [facility] Blood specimen (specimen) (Plasma/Serum) 05/10/2022 5:27 AM EDT 05/10/2022 6:27 AM EDT Maria Alejandra Linares PA LAB BLOOD ORDERABLES Final Resu lt Performing Organization Address [facility] Co de Phone Number [address] [phone] * (ABNORMAL) Hemoglobin A1c with Estimated Average Glucose (04/23/2022 11:17 AM EDT) Hemoglobin A1C 6.3(H) <5.7 % 04/23/2022 6:39 PM EDT [facility] Comment: A1c% Interpretation 5.7 - 6.0 Increase risk of diabetes 6.1 - 6.4 Higher risk of diabetes > or = 6.5 Consistent with diabetes Diabetes Care, 33(Supp 1):S1-S61, 2009 Estimated Average Glucose 134 mg/dL 04/23/2022 6:39 PM EDT [facility] Blood specimen (specimen) Blood specimen / Unknown 04/23/2022 11:17 AM EDT 04/23/2022 5:16 PM EDT us Cristin Montoya APRN LAB BLOOD ORDERABLES Fin al Result Performing Organization Address [facility] Co de Phone Number [address] [phone] from Last 3 Months or Most Recently Relevant to Health Maintenance Insurance MEDICARE PART A & B [facility] MEDICARE PART A & B MEDICARE PART A & B Advance Directives * Full Code (Latest Code Status on File) Date Activated Date Inactivated Comments 05/09/2022 8:35 PM * Full Code Date Activated Date Inactivated Comments 05/09/2022 9:32 AM 05/09/2022 8:35 PM * Full Code Date Activated Date Inactivated Comments 02/23/2022 4:34 PM 05/09/2022 8:50 AM * Full Code Date Activated Date Inactivated Comments 02/23/2022 10:37 AM 02/23/2022 4:34 PM Care Teams Boiler House Inspector Relationship Specialty Start Date End Date Tian Grossman MD [address] [place] [address] [place] [id number] PCP - General Internal Medicine 10/23/21 Scout Aponte MD [address] [place] [address] [place] [address] Referring Provider 10/23/21 Trinidad Roa MD [address] [place] [id number] Surgery, Neurosurgery 02/19/22
== END 2025-08-30 14:17 | disposition home or self-care (01) ==
LOC: HO.HMCH 12:53
PROVIDERS: PCP Internal Medicine; Visit Provider Internal Medicine
DX: Z00.00 Encounter for general adult medical examination without abnormal findings (principal); M54.9 Dorsalgia, unspecified; M10.9 Gout, unspecified; Z23 Encounter for immunization

== ENCOUNTER → 2025-08-30 12:53 | Outpatient (BNVA) | payer MEDICARE, SELFPAY | PROVIDERS: Visit Provider Internal Medicine | DX: Z00.00 Encounter for general adult medical examination without abnormal findings (principal); M54.9 Dorsalgia, unspecified; M10.9 Gout, unspecified; Z23 Encounter for immunization; Z13.31 Encounter for screening for depression; Z13.39 Encounter for screening examination for other mental health and behavioral disorders | CPT/HCPCS: 90471; 90656; 96127; 99202 ==